=== PATIENT | female | born 1940 | race Caucasian/White ===

== ENCOUNTER 2020-12-09 17:42 | Inpatient (IN) ==
[2020-12-09] MEDS ORDERED: Lactated Ringers 1000 ml BAG 1,000 ML IV ONE (18:10)
[2020-12-09 18:35] LABS: ABS Lymphocytes 0.9 10^3/ul (1.0-4.8); ABS Monocytes 0.5 10^3/ul (0-0.8); Hematocrit 44 % (35-47); Hemoglobin 14.7 g/dL (12.0-16.0); Lymphocyte % 7.5 %; Mean Corpuscular HGB Conc 33 g/dL (31-36); Mean Corpuscular Hemoglobin 30 pg (27-31); Mean Corpuscular Volume 90 fL (80-97); Mean Platelet Volume 10.4 fL (7.4-10.4); Platelet Count 258 10^3/uL (150-450); Red Blood Count 4.87 10^6 /uL (3.70-4.87); Red Cell Distribution Width 14 % (10-15); Venous Bicarbonate HCO3 20.8 mmol/L (24-28); White Blood Count 12.4 10^3/uL (3.5-10.8)
[2020-12-09 18:52] LABS: ALT 14 U/L (7-52); Albumin/Globulin Ratio 0.9 (1-3); Alkaline Phosphatase 92 U/L (35-149); Blood Urea Nitrogen 20 mg/dL (6-24); C Reactive Protein 11.21 mg/L (<8.01); CO2 Carbon Dioxide 20 mmol/L (22-32); Calcium 9.5 mg/dL (8.6-10.3); Chloride 95 mmol/L (101-111); Creatine Kinase 246 U/L (10-223); EGFR African American 65.7 (>60); EGFR Non-African American 54.3 (>60); Globulin 4.5 g/dL (2-4); Glucose 401 mg/dL (70-100); Sodium 132 mmol/L (135-145); Total Protein 8.5 g/dL (6.4-8.9)
[2020-12-09 18:54] LABS: Troponin I 0.02 ng/mL (<0.03)
[2020-12-09 18:57] LABS: Anion Gap 17 mmol/L (2-11)
[2020-12-09 19:52] LABS: Urine Appearance Clear; Urine Bacteria 1+ (Absent); Urine Bilirubin Negative (Negative); Urine Blood 3+ (Negative); Urine Color Straw; Urine Glucose 3+(>=500 mg/dL) (Negative); Urine Ketones 2+ (Negative); Urine Nitrite Negative (Negative); Urine Protein 3+(>=500 mg/dL) (Negative); Urine Red Blood Cell Trace(0-2/hpf) (Absent); Urine Specific Gravity 1.021 (1.002-1.030); Urine Squamous Epithelial Cell Present (Absent); Urine Urobilinogen Negative (Negative); Urine White Blood Cell Trace(0-5/hpf) (Absent)
[2020-12-09 19:53] LABS: Magnesium 1.6 mg/dL (1.9-2.7); Potassium Redraw 4.1 mmol/L (3.5-5.0)
[2020-12-09] MEDS ORDERED: Magnesium Sulfate 2 gm BAG 2 GM/50 ML BAG IVPB ONE (19:56)
[2020-12-09 21:32] LABS: Rapid COVID-19 Molecular Undetected (Undetected)
[2020-12-09] MEDS ORDERED: Dextrose 50% Syringe 50 ml 25 GM/50 ML SYRINGE IV PUSH PRN (22:52)
[2020-12-09] MEDS ORDERED: Dextrose 50% Syringe 50 ml 25 GM/50 ML SYRINGE IV PUSH ONE (23:24)
[2020-12-09 23:32] LABS: Urine Creatinine Concentration 24.46 mg/dL
[2020-12-09 23:35] LABS: Myoglobin 186.7 ng/mL (14.3-65.8)
[2020-12-09] MEDS ORDERED: Lactated Ringers 1000 ml BAG 1,000 ML IV SCH (23:45)
[2020-12-10] MEDS: Enoxaparin 40 MG/0.4 ML SYR SUBCUT SCH (02:42)
[2020-12-10 05:14] LABS: Calcium 9.2 mg/dL (8.6-10.3)
[2020-12-10 05:20] LABS: EGFR African American 62.8 (>60); EGFR Non-African American 51.9 (>60)
[2020-12-10 05:37] LABS: Potassium 3.9 mmol/L (3.5-5.0)
[2020-12-10 09:48] LABS: ABS Lymphocytes 1.6 10^3/ul (1.0-4.8); ABS Monocytes 0.9 10^3/ul (0-0.8); ABS Neutrophils 7.4 10^3/ul (1.5-7.7); Eosinophil % 0.1 %; Hematocrit 38 % (35-47); Hemoglobin 12.9 g/dL (12.0-16.0); Mean Corpuscular HGB Conc 34 g/dL (31-36); Mean Corpuscular Hemoglobin 30 pg (27-31); Mean Corpuscular Volume 89 fL (80-97); Mean Platelet Volume 9.9 fL (7.4-10.4); Platelet Count 255 10^3/uL (150-450); Red Blood Count 4.29 10^6 /uL (3.70-4.87); Red Cell Distribution Width 14 % (10-15); White Blood Count 9.9 10^3/uL (3.5-10.8)
[2020-12-10 09:56] LABS: Anion Gap 16 mmol/L (2-11); Blood Urea Nitrogen 26 mg/dL (6-24); CO2 Carbon Dioxide 22 mmol/L (22-32); Calcium 9.6 mg/dL (8.6-10.3); Chloride 101 mmol/L (101-111); EGFR African American 62.8 (>60); EGFR Non-African American 51.9 (>60); Glucose 239 mg/dL (70-100); Potassium 3.2 mmol/L (3.5-5.0); Sodium 139 mmol/L (135-145)
[2020-12-10 10:36] LABS: Acetaminophen < 15 mcg/mL; Salicylate < 2.50 mg/dL (<30)
[2020-12-10] MEDS ORDERED: Perflutren Lipid Microsphere 3 ML VIAL ONE (15:15)
[2020-12-10] MEDS ORDERED: KCL 20 MEQ/100 ML IVPREMIX 20 MEQ/100 ML BAG IV ONE (16:26)
[2020-12-10] MEDS ORDERED: NS 0.9% 1000 ml BAG 1,000 ML IV SCH (16:30)
[2020-12-10] MEDS ORDERED: Potassium Chlor 20 meq TAB.ER PO ONE (20:27)
[2020-12-10] MEDS ORDERED: Insulin GLARGINE 100 un/ml 10 ml VIAL SUBCUT SCH (21:00)
[2020-12-10] MEDS: Insulin GLARGINE 100 un/ml 10 ml VIAL SUBCUT SCH (21:34)
[2020-12-11 07:12] LABS: Calcium 8.9 mg/dL (8.6-10.3); EGFR African American 88.2 (>60); EGFR Non-African American 72.9 (>60); Potassium 3.5 mmol/L (3.5-5.0)
[2020-12-11] MEDS: Enoxaparin 40 MG/0.4 ML SYR SUBCUT SCH (09:50)
[2020-12-11] MEDS: Aspirin EC 81 mg TAB.EC (enteric coated) PO SCH (09:52)
[2020-12-11 20:39] LABS: Glucose Confirmatory 561 mg/dL (70-100)
[2020-12-11] MEDS: Insulin GLARGINE 100 un/ml 10 ml VIAL SUBCUT SCH (21:24)
[2020-12-11 21:35] LABS: Anion Gap 12 mmol/L (2-11); Blood Urea Nitrogen 32 mg/dL (6-24); CO2 Carbon Dioxide 21 mmol/L (22-32); Calcium 8.7 mg/dL (8.6-10.3); Chloride 100 mmol/L (101-111); EGFR African American 58.1 (>60); EGFR Non-African American 48.1 (>60); Potassium 3.6 mmol/L (3.5-5.0); Sodium 133 mmol/L (135-145)
[2020-12-11 22:31] LABS: Glucose 559 mg/dL (70-100)
[2020-12-12] MEDS ORDERED: Dextrose 50% Syringe 50 ml 25 GM/50 ML SYRINGE IV PUSH PRN (00:05)
[2020-12-12 07:42] LABS: Calcium 9.1 mg/dL (8.6-10.3); EGFR African American 83.1 (>60); EGFR Non-African American 68.7 (>60); Potassium 3.2 mmol/L (3.5-5.0)
[2020-12-12] MEDS: Aspirin EC 81 mg TAB.EC (enteric coated) PO SCH (09:17)
[2020-12-12] MEDS: Enoxaparin 40 MG/0.4 ML SYR SUBCUT SCH (09:19)
[2020-12-12] MEDS ORDERED: Lidocaine 1% w EPI 1:100,000 MDV 20 ML VIAL ONE (12:30)
[2020-12-12] MEDS ORDERED: Potassium Chlor 20 meq TAB.ER PO ONE (13:01)
[2020-12-12 16:53] LABS: Glucose Confirmatory 437 mg/dL (70-100)
[2020-12-12 17:35] LABS: HDL Cholesterol 38.1 mg/dL
[2020-12-12] MEDS ORDERED: Insulin GLARGINE 100 un/ml 10 ml VIAL SUBCUT SCH (21:00)
[2020-12-13] MEDS: Enoxaparin 40 MG/0.4 ML SYR SUBCUT SCH (10:47)
[2020-12-13 11:28] VITALS: BP 141/75
== END 2020-12-13 11:15 | DRG 40 ==
LOC: ED 17:42 → SUATTDRO 23:39 → EDHOLD 23:39 → MEDTELE 12-10 13:16
PROVIDERS: ADMIT Internal Medicine; ATTEND Hospitalist

== ENCOUNTER 2022-01-18 18:02 | Inpatient (IN) ==
[2022-01-18] MEDS ORDERED: NS 0.9% 1000 ml BAG 500 ML IV ONE (18:09)
[2022-01-18 18:47] LABS: ABS Basophils 0.1 10^3/ul (0-0.2); ABS Lymphocytes 0.7 10^3/ul (1.0-4.8); ABS Monocytes 0.6 10^3/ul (0-0.8); ABS Neutrophils 8.1 10^3/ul (1.5-7.7); Hematocrit 39 % (35-47); Hemoglobin 12.9 g/dL (12.0-16.0); Lymphocyte % 7.8 %; Mean Corpuscular HGB Conc 33 g/dL (31-36); Mean Corpuscular Hemoglobin 29 pg (27-31); Mean Corpuscular Volume 89 fL (80-97); Mean Platelet Volume 9.9 fL (7.4-10.4); Platelet Count 228 10^3/uL (150-450); Red Blood Count 4.43 10^6 /uL (3.70-4.87); Red Cell Distribution Width 14 % (10-15); White Blood Count 9.5 10^3/uL (3.5-10.8)
[2022-01-18 18:57] LABS: Urine Appearance Cloudy; Urine Bilirubin Negative (Negative); Urine Blood 2+ (Negative); Urine Color Yellow; Urine Glucose 3+(>=500 mg/dL) (Negative); Urine Ketones 1+ (Negative); Urine Nitrite Negative (Negative); Urine Protein 3+(>=500 mg/dL) (Negative); Urine Specific Gravity 1.024 (1.002-1.030); Urine Urobilinogen Negative (Negative)
[2022-01-18 19:14] LABS: Urine Bacteria 1+ (Absent); Urine Red Blood Cell 3+(>10/hpf) (Absent); Urine Squamous Epithelial Cell Present (Absent); Urine White Blood Cell 3+(>20/hpf) (Absent)
[2022-01-18 19:22] LABS: Albumin 3.5 g/dL (3.2-5.2); Albumin/Globulin Ratio 0.8 (1-3); C Reactive Protein 75.6 mg/L (<8.01); Calcium 9.2 mg/dL (8.6-10.3); Globulin 4.5 g/dL (2-4); Potassium 4.2 mmol/L (3.5-5.0); Total Bilirubin 0.5 mg/dL (0.2-1.0); eGFR CKD-EPI 52.1 (>60)
[2022-01-18] MEDS ORDERED: cefTRIAXone 1 gm/50 mL D5W 1 GM/50 ML BAG IV ONE (19:26)
[2022-01-18] MEDS ORDERED: NS 0.9% 500 ml BAG 500 ML IV ONE (20:04)
[2022-01-18 20:32] LABS: Glucose Confirmatory 436 mg/dL (70-100)
[2022-01-18] MEDS ORDERED: Ondansetron 4 mg VIAL 2 MG/ML 2 ml VIAL IV PRN (21:25)
[2022-01-18 21:45] LABS: High Sensitivity Troponin 1 Hr 19 pg/mL (<15)
[2022-01-18] MEDS ORDERED: Lactated Ringers 1000 ml BAG 1,000 ML IV ONE (21:55)
[2022-01-18 21:56] LABS: Magnesium 1.7 mg/dL (1.9-2.7)
[2022-01-18] MEDS ORDERED: Enoxaparin 40 MG/0.4 ML SYR SUBCUT SCH (22:00)
[2022-01-18] MEDS ORDERED: Magnesium Sulfate IV 3 GM in NS 0.9% 100 ml BAG 100 ML IVPB ONE (23:54)
[2022-01-19] MEDS: Insulin GLARGINE 100 un/ml 10 ml VIAL SUBCUT SCH ×2 (01:22→22:11)
[2022-01-19] MEDS: Nystatin TOP POWDER 15 GM BTL TOPICAL SCH ×3 (01:44→22:15)
[2022-01-19] MEDS: Enoxaparin 30 MG/0.3 ML SYR SUBCUT ONE ×2 (01:55→03:35)
[2022-01-19 06:38] LABS: ABS Lymphocytes 1.1 10^3/ul (1.0-4.8); ABS Monocytes 0.6 10^3/ul (0-0.8); ABS Neutrophils 4.6 10^3/ul (1.5-7.7); Eosinophil % 0.1 %; Hematocrit 35 % (35-47); Hemoglobin 11.7 g/dL (12.0-16.0); Lymphocyte % 17.6 %; Mean Corpuscular HGB Conc 34 g/dL (31-36); Mean Corpuscular Hemoglobin 30 pg (27-31); Mean Corpuscular Volume 88 fL (80-97); Mean Platelet Volume 9.6 fL (7.4-10.4); Platelet Count 207 10^3/uL (150-450); Red Blood Count 3.98 10^6 /uL (3.70-4.87); Red Cell Distribution Width 14 % (10-15); White Blood Count 6.4 10^3/uL (3.5-10.8)
[2022-01-19 07:11] LABS: Calcium 8.5 mg/dL (8.6-10.3); Potassium 3.4 mmol/L (3.5-5.0); eGFR CKD-EPI 57.3 (>60)
[2022-01-19 07:26] LABS: TSH Ultra Thyroid Stim Horm 7.41 mcIU/mL (0.34-5.60)
[2022-01-19 08:13] LABS: Magnesium 2.3 mg/dL (1.9-2.7)
[2022-01-19] MEDS ORDERED: Dextrose 50% VIAL 50 ml IV PRN (10:47)
[2022-01-19] MEDS ORDERED: Enoxaparin 100 MG/ML SYR SUBCUT SCH (11:00)
[2022-01-19] MEDS ORDERED: Enoxaparin 80 MG/0.8 ML SYR SUBCUT SCH (11:00)
[2022-01-19] MEDS ORDERED: KCL 20 MEQ/100 ML IVPREMIX 20 MEQ/100 ML BAG IV ONE (17:53)
[2022-01-19] MEDS ORDERED: cefTRIAXone 1 gm/50 mL NS BAG 1 GM/50 ML BAG IV SCH (18:00)
[2022-01-19] MEDS: CMCS: SitaGLIPtin 100 mg TAB (NF) PO SCH (19:21)
[2022-01-20 06:35] LABS: ABS Eosinophils 0.1 10^3/ul (0-0.6); ABS Lymphocytes 1.2 10^3/ul (1.0-4.8); ABS Monocytes 0.5 10^3/ul (0-0.8); ABS Neutrophils 3.2 10^3/ul (1.5-7.7); Eosinophil % 2.2 %; Hematocrit 35 % (35-47); Hemoglobin 11.6 g/dL (12.0-16.0); Mean Corpuscular HGB Conc 33 g/dL (31-36); Mean Corpuscular Hemoglobin 29 pg (27-31); Mean Corpuscular Volume 88 fL (80-97); Mean Platelet Volume 9.7 fL (7.4-10.4); Platelet Count 209 10^3/uL (150-450); Red Cell Distribution Width 14 % (10-15)
[2022-01-20 06:56] LABS: Calcium 8.3 mg/dL (8.6-10.3); Potassium 3.6 mmol/L (3.5-5.0); eGFR CKD-EPI 56.6 (>60)
[2022-01-20] MEDS: CMCS: SitaGLIPtin 100 mg TAB (NF) PO SCH (09:21)
[2022-01-20] MEDS: Enoxaparin 30 MG/0.3 ML SYR SUBCUT SCH (09:22)
[2022-01-20] MEDS: Nystatin TOP POWDER 15 GM BTL TOPICAL SCH ×2 (09:23→22:01)
[2022-01-20] MEDS: Insulin GLARGINE 100 un/ml 10 ml VIAL SUBCUT SCH (22:01)
[2022-01-21] MEDS: Enoxaparin 30 MG/0.3 ML SYR SUBCUT SCH (08:18)
[2022-01-21] MEDS: Nystatin TOP POWDER 15 GM BTL TOPICAL SCH ×2 (08:18→21:09)
[2022-01-21] MEDS: CMCS: SitaGLIPtin 100 mg TAB (NF) PO SCH (08:18)
[2022-01-21] MEDS ORDERED: Insulin GLARGINE 100 un/ml 10 ml VIAL SUBCUT ONE (11:04)
[2022-01-21] MEDS ORDERED: Insulin GLARGINE 100 un/ml 10 ml VIAL SUBCUT SCH (21:00)
[2022-01-22] MEDS: CMCS: SitaGLIPtin 100 mg TAB (NF) PO SCH (09:59)
[2022-01-22] MEDS: Enoxaparin 30 MG/0.3 ML SYR SUBCUT SCH (10:02)
[2022-01-22] MEDS: Nystatin TOP POWDER 15 GM BTL TOPICAL SCH ×2 (10:10→22:41)
[2022-01-22] MEDS ORDERED: Enoxaparin 40 MG/0.4 ML SYR SUBCUT SCH (18:00)
[2022-01-22] MEDS: Insulin GLARGINE 100 un/ml 10 ml VIAL SUBCUT SCH (22:57)
[2022-01-23 07:00] LABS: ABS Eosinophils 0.2 10^3/ul (0-0.6); ABS Lymphocytes 1.7 10^3/ul (1.0-4.8); ABS Monocytes 0.4 10^3/ul (0-0.8); ABS Neutrophils 2.1 10^3/ul (1.5-7.7); Eosinophil % 4.4 %; Hematocrit 35 % (35-47); Hemoglobin 11.6 g/dL (12.0-16.0); Lymphocyte % 38.1 %; Mean Corpuscular HGB Conc 33 g/dL (31-36); Mean Corpuscular Hemoglobin 29 pg (27-31); Mean Corpuscular Volume 88 fL (80-97); Mean Platelet Volume 9.4 fL (7.4-10.4); Platelet Count 233 10^3/uL (150-450); Red Blood Count 4.01 10^6 /uL (3.70-4.87); Red Cell Distribution Width 14 % (10-15); White Blood Count 4.4 10^3/uL (3.5-10.8)
[2022-01-23] MEDS: Enoxaparin 40 MG/0.4 ML SYR SUBCUT SCH (09:00)
[2022-01-23] MEDS: CMCS: SitaGLIPtin 100 mg TAB (NF) PO SCH (09:00)
[2022-01-23] MEDS: Nystatin TOP POWDER 15 GM BTL TOPICAL SCH ×2 (09:01→21:40)
[2022-01-23 09:32] LABS: TSH Ultra Thyroid Stim Horm 9.37 mcIU/mL (0.34-5.60)
[2022-01-23 09:34] LABS: Free T4 0.98 ng/dL (0.61-1.12)
[2022-01-23 09:47] LABS: Albumin/Globulin Ratio 0.8 (1-3); Calcium 8.5 mg/dL (8.6-10.3); Globulin 3.8 g/dL (2-4); Potassium 4.5 mmol/L (3.5-5.0); Total Bilirubin 0.2 mg/dL (0.2-1.0); Total Protein 6.8 g/dL (6.4-8.9); eGFR CKD-EPI 58.7 (>60)
[2022-01-23] MEDS: Insulin GLARGINE 100 un/ml 10 ml VIAL SUBCUT SCH (21:39)
[2022-01-24 07:26] LABS: Calcium 8.6 mg/dL (8.6-10.3); Magnesium 1.5 mg/dL (1.9-2.7); Potassium 4.2 mmol/L (3.5-5.0); eGFR CKD-EPI 67.9 (>60)
[2022-01-24] MEDS ORDERED: Magnesium Sulf 4 GM/100 ML IV 4,000 MG/100 ML BAG IVPB ONE (07:56)
[2022-01-24] MEDS: Nystatin TOP POWDER 15 GM BTL TOPICAL SCH (09:03)
[2022-01-24] MEDS: CMCS: SitaGLIPtin 100 mg TAB (NF) PO SCH (09:03)
[2022-01-24] MEDS: Enoxaparin 40 MG/0.4 ML SYR SUBCUT SCH (09:03)
[2022-01-24 13:26] VITALS: BP 158/67
== END 2022-01-24 13:05 | disposition swing bed (61) | DRG 637 ==
LOC: ED 18:02 → EDHOLD 18:02 → SUATTDRO 21:25 → MEDTELE 01-19 00:53 → SUATTDRO 01-19 11:46 → UNDODISOB 01-19 11:46
PROVIDERS: ADMIT Student in an Organized Health Care Education/Training Program; ATTEND Internal Medicine

== ENCOUNTER 2022-01-24 13:38 | Inpatient (IN) ==
[2022-01-24] MEDS: Enoxaparin 40 MG/0.4 ML SYR SUBCUT SCH (17:21)
[2022-01-24] MEDS: Insulin GLARGINE 100 un/ml 10 ml VIAL SUBCUT SCH (23:00)
[2022-01-25] MEDS: Calcium/Vitamin D TAB 250/125 TAB PO SCH (09:10)
[2022-01-25] MEDS: CMC:SitaGLIPtin 100 mg TAB (NF) PO SCH (09:14)
[2022-01-25] MEDS: Enoxaparin 40 MG/0.4 ML SYR SUBCUT SCH (14:25)
[2022-01-25] MEDS: Insulin GLARGINE 100 un/ml 10 ml VIAL SUBCUT SCH (23:08)
[2022-01-26] MEDS: Calcium/Vitamin D TAB 250/125 TAB PO SCH (09:06)
[2022-01-26] MEDS: CMC:SitaGLIPtin 100 mg TAB (NF) PO SCH (09:17)
[2022-01-26] MEDS: Enoxaparin 40 MG/0.4 ML SYR SUBCUT SCH (14:08)
[2022-01-26] MEDS: Insulin GLARGINE 100 un/ml 10 ml VIAL SUBCUT SCH (22:23)
[2022-01-27] MEDS: Calcium/Vitamin D TAB 250/125 TAB PO SCH (10:01)
[2022-01-27] MEDS: CMC:SitaGLIPtin 100 mg TAB (NF) PO SCH (10:05)
[2022-01-27] MEDS: Enoxaparin 40 MG/0.4 ML SYR SUBCUT SCH (15:21)
[2022-01-27] MEDS: Insulin GLARGINE 100 un/ml 10 ml VIAL SUBCUT SCH (21:43)
[2022-01-28] MEDS: CMC:SitaGLIPtin 100 mg TAB (NF) PO SCH (07:46)
[2022-01-28] MEDS: Calcium/Vitamin D TAB 250/125 TAB PO SCH (07:47)
[2022-01-28 12:11] VITALS: BP 149/69
== END 2022-01-28 13:30 | DRG 947 ==
LOC: MEDTELE → SUATTDRO 13:40 → OBSVTOIN 13:40
PROVIDERS: ADMIT Student in an Organized Health Care Education/Training Program; ATTEND Hospitalist

== ENCOUNTER 2022-04-06 15:04 | Inpatient (IN) ==
[2022-04-06] MEDS ORDERED: Lactated Ringers 1000 ml BAG 1,000 ML IV ONE (16:38)
[2022-04-06 16:41] LABS: ABS Basophils 0.1 10^3/ul (0-0.2); ABS Lymphocytes 1.1 10^3/ul (1.0-4.8); ABS Monocytes 0.8 10^3/ul (0-0.8); ABS Neutrophils 8.9 10^3/ul (1.5-7.7); Eosinophil % 0.2 %; Hematocrit 30 % (35-47); Hemoglobin 9.2 g/dL (12.0-16.0); Lymphocyte % 10.2 %; Mean Corpuscular HGB Conc 31 g/dL (31-36); Mean Corpuscular Hemoglobin 25 pg (27-31); Mean Corpuscular Volume 82 fL (80-97); Mean Platelet Volume 8.2 fL (7.4-10.4); Nucleated Red Blood Cells % 0.1; Platelet Count 338 10^3/uL (150-450); Red Blood Count 3.62 10^6 /uL (3.70-4.87); Red Cell Distribution Width 17 % (10-15)
[2022-04-06 17:05] LABS: High Sens Troponin Baseline 40 pg/mL (<15)
[2022-04-06 17:18] LABS: ALT 19 U/L (7-52); AST 22 U/L (13-39); Albumin 2.7 g/dL (3.2-5.2); Albumin/Globulin Ratio 0.8 (1-3); Alkaline Phosphatase 82 U/L (35-149); Blood Urea Nitrogen 17 mg/dL (6-24); CO2 Carbon Dioxide 32 mmol/L (22-32); Calcium 7.8 mg/dL (8.6-10.3); Chloride 105 mmol/L (101-111); Creatine Kinase 574 U/L (10-223); Creatinine, Serum 1.23 mg/dL (0.51-0.95); Globulin 3.5 g/dL (2-4); Glucose 202 mg/dL (70-100); Total Protein 6.2 g/dL (6.4-8.9); eGFR CKD-EPI 43.6 (>60)
[2022-04-06] MEDS ORDERED: Iodixanol (CONTRAST) 320 MG/ML 100 ML SDV IV ONE (17:42)
[2022-04-06 17:44] LABS: Anion Gap 9 mmol/L (2-11); Potassium 2.5 mmol/L (3.5-5.0); Sodium 146 mmol/L (135-145)
[2022-04-06 18:03] LABS: High Sensitivity Troponin 1 Hr 40 pg/mL (<15)
[2022-04-06] MEDS ORDERED: Morphine 4 MG/ML VIAL (1 ml) IV ONE (18:30)
[2022-04-06] MEDS: KCL 10 MEQ/50 ML IVPREMIX 10 MEQ/50 ML BAG IV SCH ×3 (18:35→21:29)
[2022-04-06 23:15] LABS: Alcohol, S < 13 mg/dL (<13); Magnesium 1.4 mg/dL (1.9-2.7)
[2022-04-06] MEDS ORDERED: Potassium Chlor 20 meq TAB.ER PO ONE (23:23)
[2022-04-06] MEDS ORDERED: Magnesium Sulf 4 GM/100 ML IV 4,000 MG/100 ML BAG IVPB ONE (23:33)
[2022-04-06 23:48] LABS: ABS Basophils 0.1 10^3/ul (0-0.2); ABS Lymphocytes 0.8 10^3/ul (1.0-4.8); ABS Monocytes 0.4 10^3/ul (0-0.8); ABS Neutrophils 8.5 10^3/ul (1.5-7.7); Eosinophil % 0.2 %; Hematocrit 28 % (35-47); Hemoglobin 8.8 g/dL (12.0-16.0); Lymphocyte % 8.2 %; Mean Corpuscular HGB Conc 31 g/dL (31-36); Mean Corpuscular Hemoglobin 26 pg (27-31); Mean Corpuscular Volume 82 fL (80-97); Mean Platelet Volume 7.7 fL (7.4-10.4); Nucleated Red Blood Cells % 0.1; Platelet Count 325 10^3/uL (150-450); Red Blood Count 3.42 10^6 /uL (3.70-4.87); Red Cell Distribution Width 17 % (10-15); White Blood Count 9.8 10^3/uL (3.5-10.8)
[2022-04-06 23:50] LABS: Urine Appearance Cloudy; Urine Bilirubin Negative (Negative); Urine Blood 2+ (Negative); Urine Color Yellow; Urine Glucose 1+(50 mg/dL) (Negative); Urine Ketones Trace (Negative); Urine Nitrite Negative (Negative); Urine Protein 3+(>=500 mg/dL) (Negative); Urine Specific Gravity 1.014 (1.002-1.030); Urine Urobilinogen Negative (Negative)
[2022-04-06 23:52] LABS: Urine Bacteria Absent (Absent); Urine Red Blood Cell 2+(6-10/hpf) (Absent); Urine Squamous Epithelial Cell Present (Absent); Urine White Blood Cell Trace(0-5/hpf) (Absent)
[2022-04-07] MEDS ORDERED: Furosemide 20 mg/2 ml IV VIAL IV ONE (00:05)
[2022-04-07 00:43] LABS: Albumin 2.7 g/dL (3.2-5.2); Albumin/Globulin Ratio 0.8 (1-3); Calcium 7.6 mg/dL (8.6-10.3); Creatinine, Serum 1.34 mg/dL (0.51-0.95); Globulin 3.6 g/dL (2-4); Magnesium 1.3 mg/dL (1.9-2.7); Total Bilirubin 0.4 mg/dL (0.2-1.0); Total Protein 6.3 g/dL (6.4-8.9); eGFR CKD-EPI 39.3 (>60)
[2022-04-07 00:45] LABS: Potassium 2.7 mmol/L (3.5-5.0)
[2022-04-07] MEDS ORDERED: Potassium Chlor 10 meq TAB PO ONE (00:46)
[2022-04-07 00:51] LABS: C Reactive Protein 34.61 mg/L (<8.01)
[2022-04-07 01:11] LABS: Ferritin 54.8 ng/mL (11-307)
[2022-04-07] MEDS: Insulin GLARGINE 100 un/ml 10 ml VIAL SUBCUT SCH ×2 (01:45→21:49)
[2022-04-07] MEDS ORDERED: Dextrose 50% Syringe 50 ml 25 GM/50 ML SYRINGE IV PUSH PRN (02:04)
[2022-04-07] MEDS ORDERED: cefTRIAXone 1 gm/50 mL D5W 1 GM/50 ML BAG IV SCH (03:00)
[2022-04-07 03:24] LABS: Folate 13.42 ng/mL (5.90-24.80)
[2022-04-07 05:43] LABS: ABS Basophils 0.1 10^3/ul (0-0.2); ABS Lymphocytes 1.5 10^3/ul (1.0-4.8); ABS Monocytes 0.7 10^3/ul (0-0.8); ABS Neutrophils 6.4 10^3/ul (1.5-7.7); Eosinophil % 0.5 %; Hematocrit 27 % (35-47); Hemoglobin 8.7 g/dL (12.0-16.0); Mean Corpuscular HGB Conc 32 g/dL (31-36); Mean Corpuscular Hemoglobin 26 pg (27-31); Mean Corpuscular Volume 83 fL (80-97); Mean Platelet Volume 8.2 fL (7.4-10.4); Platelet Count 307 10^3/uL (150-450); Red Blood Count 3.31 10^6 /uL (3.70-4.87); Red Cell Distribution Width 17 % (10-15); White Blood Count 8.6 10^3/uL (3.5-10.8)
[2022-04-07 06:39] LABS: Calcium 7.8 mg/dL (8.6-10.3); Creatinine, Serum 1.43 mg/dL (0.51-0.95); Magnesium 2.2 mg/dL (1.9-2.7); Potassium 2.8 mmol/L (3.5-5.0); eGFR CKD-EPI 36.4 (>60)
[2022-04-07] MEDS ORDERED: Potassium Chlor 20 meq TAB.ER PO ONE (06:52)
[2022-04-07] MEDS ORDERED: NS 0.9% 1000 ml BAG 1,000 ML IV SCH ×2 (09:45→15:24)
[2022-04-07] MEDS: Pantoprazole VIAL 40 MG VIAL IV SCH ×2 (10:41→21:50)
[2022-04-07 14:29] LABS: Hematocrit 27 % (35-47); Hemoglobin 8.4 g/dL (12.0-16.0)
[2022-04-07 15:16] LABS: Calcium 7.7 mg/dL (8.6-10.3); Creatinine, Serum 1.38 mg/dL (0.51-0.95); Potassium 2.8 mmol/L (3.5-5.0)
[2022-04-07 15:55] LABS: High Sensitivity Troponin 1 Hr 55 pg/mL (<15)
[2022-04-07 16:10] LABS: Hematocrit 28 % (35-47); Hemoglobin 8.7 g/dL (12.0-16.0)
[2022-04-07] MEDS: KCL 20 MEQ/100 ML IVPREMIX 20 MEQ/100 ML BAG IV SCH ×2 (18:37→23:33)
[2022-04-07 20:26] LABS: Creatinine, Serum 1.4 mg/dL (0.51-0.95); eGFR CKD-EPI 37.3 (>60)
[2022-04-08 00:34] LABS: Hematocrit 27 % (35-47); Hemoglobin 8.6 g/dL (12.0-16.0)
[2022-04-08] MEDS ORDERED: KCL 20 MEQ/100 ML IVPREMIX 20 MEQ/100 ML BAG IV SCH (01:30)
[2022-04-08] MEDS: NS 0.9% w/ 20 Meq KCL 1000 ml 1,000 ML IV SCH (02:50)
[2022-04-08] MEDS: cefTRIAXone 1 gm/50 mL D5W 1 GM/50 ML BAG IV SCH (02:51)
[2022-04-08 07:34] LABS: Hematocrit 29 % (35-47); Hemoglobin 9.3 g/dL (12.0-16.0)
[2022-04-08 07:36] LABS: ABS Basophils 0.1 10^3/ul (0-0.2); ABS Eosinophils 0.2 10^3/ul (0-0.6); ABS Lymphocytes 1.4 10^3/ul (1.0-4.8); ABS Monocytes 0.6 10^3/ul (0-0.8); ABS Neutrophils 4.3 10^3/ul (1.5-7.7); Eosinophil % 2.4 %; Hematocrit 29 % (35-47); Hemoglobin 9.2 g/dL (12.0-16.0); Lymphocyte % 20.8 %; Mean Corpuscular HGB Conc 32 g/dL (31-36); Mean Corpuscular Hemoglobin 27 pg (27-31); Mean Corpuscular Volume 83 fL (80-97); Mean Platelet Volume 8.4 fL (7.4-10.4); Platelet Count 284 10^3/uL (150-450); Red Blood Count 3.47 10^6 /uL (3.70-4.87); Red Cell Distribution Width 17 % (10-15); White Blood Count 6.6 10^3/uL (3.5-10.8)
[2022-04-08 07:52] LABS: Calcium 8.1 mg/dL (8.6-10.3); Creatinine, Serum 1.44 mg/dL (0.51-0.95); Potassium 3.2 mmol/L (3.5-5.0); eGFR CKD-EPI 36.1 (>60)
[2022-04-08] MEDS ORDERED: Potassium Chlor 20 meq TAB.ER PO ONE ×2 (08:30→12:30)
[2022-04-08] MEDS: Pantoprazole VIAL 40 MG VIAL IV SCH ×2 (09:04→21:08)
[2022-04-08 15:44] LABS: ABS Eosinophils 0.1 10^3/ul (0-0.6); ABS Lymphocytes 0.9 10^3/ul (1.0-4.8); ABS Monocytes 0.4 10^3/ul (0-0.8); ABS Neutrophils 5.2 10^3/ul (1.5-7.7); Hematocrit 29 % (35-47); Hemoglobin 9.3 g/dL (12.0-16.0); Lymphocyte % 13.7 %; Mean Corpuscular HGB Conc 32 g/dL (31-36); Mean Corpuscular Hemoglobin 26 pg (27-31); Mean Corpuscular Volume 82 fL (80-97); Mean Platelet Volume 8.3 fL (7.4-10.4); Nucleated Red Blood Cells % 0.1; Platelet Count 280 10^3/uL (150-450); Red Blood Count 3.57 10^6 /uL (3.70-4.87); Red Cell Distribution Width 17 % (10-15); White Blood Count 6.7 10^3/uL (3.5-10.8)
[2022-04-08 18:35] LABS: Creatinine, Serum 1.45 mg/dL (0.51-0.95); Potassium 3.9 mmol/L (3.5-5.0); eGFR CKD-EPI 35.8 (>60)
[2022-04-08 20:53] LABS: Hematocrit 29 % (35-47); Hemoglobin 9.1 g/dL (12.0-16.0)
[2022-04-08] MEDS: PEG 3000 GI LAVAGE 1 GALLON PO SCH (21:06)
[2022-04-08] MEDS: Insulin GLARGINE 100 un/ml 10 ml VIAL SUBCUT SCH (21:07)
[2022-04-08] MEDS ORDERED: hydrALAZINE 20 mg/ml 1 ML Vial IV IV SLOW PU ONE (23:36)
[2022-04-09] MEDS: NS 0.9% w/ 20 Meq KCL 1000 ml 1,000 ML IV SCH (00:40)
[2022-04-09] MEDS ORDERED: hydrALAZINE 20 mg/ml 1 ML Vial IV IV SLOW PU ONE (01:25)
[2022-04-09] MEDS: cefTRIAXone 1 gm/50 mL D5W 1 GM/50 ML BAG IV SCH (03:10)
[2022-04-09 06:14] LABS: ABS Basophils 0.1 10^3/ul (0-0.2); ABS Eosinophils 0.1 10^3/ul (0-0.6); ABS Lymphocytes 1.3 10^3/ul (1.0-4.8); ABS Monocytes 0.7 10^3/ul (0-0.8); ABS Neutrophils 6.4 10^3/ul (1.5-7.7); Eosinophil % 1.6 %; Hematocrit 30 % (35-47); Hemoglobin 9.7 g/dL (12.0-16.0); Lymphocyte % 15.4 %; Mean Corpuscular HGB Conc 32 g/dL (31-36); Mean Corpuscular Hemoglobin 27 pg (27-31); Mean Corpuscular Volume 83 fL (80-97); Mean Platelet Volume 8.1 fL (7.4-10.4); Platelet Count 293 10^3/uL (150-450); Red Blood Count 3.66 10^6 /uL (3.70-4.87); Red Cell Distribution Width 17 % (10-15); White Blood Count 8.6 10^3/uL (3.5-10.8)
[2022-04-09 06:46] LABS: Calcium 8.1 mg/dL (8.6-10.3); Creatinine, Serum 1.21 mg/dL (0.51-0.95); Magnesium 1.7 mg/dL (1.9-2.7); Potassium 3.6 mmol/L (3.5-5.0); eGFR CKD-EPI 44.5 (>60)
[2022-04-09] MEDS ORDERED: Magnesium Sulfate IV 3 GM in NS 0.9% 100 ml BAG 100 ML IVPB ONE (07:06)
[2022-04-09] MEDS ORDERED: Potassium Chlor 20 meq TAB.ER PO ONE (07:07)
[2022-04-09] MEDS: PEG 3000 GI LAVAGE 1 GALLON PO SCH (07:39)
[2022-04-09] MEDS: Pantoprazole VIAL 40 MG VIAL IV SCH ×2 (08:26→21:10)
[2022-04-09] MEDS ORDERED: Furosemide 20 mg/2 ml IV VIAL IV SLOW PU ONE (09:26)
[2022-04-09] MEDS: Insulin GLARGINE 100 un/ml 10 ml VIAL SUBCUT SCH (21:47)
[2022-04-10] MEDS: cefTRIAXone 1 gm/50 mL D5W 1 GM/50 ML BAG IV SCH (03:30)
[2022-04-10 05:40] LABS: ABS Basophils 0.1 10^3/ul (0-0.2); ABS Eosinophils 0.1 10^3/ul (0-0.6); ABS Lymphocytes 1.2 10^3/ul (1.0-4.8); ABS Monocytes 0.5 10^3/ul (0-0.8); Eosinophil % 1.8 %; Hematocrit 30 % (35-47); Hemoglobin 9.4 g/dL (12.0-16.0); Mean Corpuscular HGB Conc 31 g/dL (31-36); Mean Corpuscular Hemoglobin 26 pg (27-31); Mean Corpuscular Volume 82 fL (80-97); Mean Platelet Volume 8.2 fL (7.4-10.4); Platelet Count 269 10^3/uL (150-450); Red Blood Count 3.64 10^6 /uL (3.70-4.87); Red Cell Distribution Width 17 % (10-15); White Blood Count 5.9 10^3/uL (3.5-10.8)
[2022-04-10] MEDS: Polyethyl Glycol/Propylene Gly OPHTH.SOLN BOTH EYES PRN (05:44)
[2022-04-10] MEDS ORDERED: PEG 3000 GI LAVAGE 1 GALLON PO ONE (06:00)
[2022-04-10 06:12] LABS: Calcium 8.2 mg/dL (8.6-10.3); Creatinine, Serum 1.15 mg/dL (0.51-0.95); Magnesium 1.9 mg/dL (1.9-2.7); Potassium 3.3 mmol/L (3.5-5.0); eGFR CKD-EPI 47.3 (>60)
[2022-04-10] MEDS ORDERED: Magnesium Sulfate 2 gm BAG 2 GM/50 ML BAG IVPB ONE (07:33)
[2022-04-10] MEDS ORDERED: Potassium Chlor 20 meq TAB.ER PO ONE (07:33)
[2022-04-10] MEDS: Pantoprazole VIAL 40 MG VIAL IV SCH ×2 (09:21→21:03)
[2022-04-10] MEDS: Nystatin TOP POWDER 15 GM BTL TOPICAL SCH ×2 (11:04→21:03)
[2022-04-10] MEDS ORDERED: Midazolam 5 mg/5 ml VIAL 1 mg/ml 5 ml VIAL (5 mg) ONE (13:19)
[2022-04-10] MEDS ORDERED: fentaNYL 100 mcg/2 ml 50 MCG/ML VIAL ONE (13:19)
[2022-04-10] MEDS ORDERED: Naloxone 0.4 mg VIAL 0.4 mg/ml 1 ml VIAL IV PUSH PRN (14:02)
[2022-04-10] MEDS ORDERED: Flumazenil 0.5 mg/5 ml 0.1 MG/ML 5 ml VIAL IV PRN (14:02)
[2022-04-10] MEDS ORDERED: fentaNYL 100 mcg/2 ml 50 MCG/ML VIAL IV SLOW PU ONE (14:02)
[2022-04-10] MEDS ORDERED: Midazolam 10 mg/10 ml VIAL 1 mg/ml 10 ml VIAL (10 mg) IV SLOW PU ONE (14:02)
[2022-04-10] MEDS ORDERED: Ondansetron 4 mg VIAL 2 MG/ML 2 ml VIAL IV ONE (14:02)
[2022-04-10] MEDS ORDERED: Lactated Ringers 1000 ml BAG 1,000 ML IV ONE (14:02)
[2022-04-10] MEDS ORDERED: Ferric Gluconate IV 125 MG in NS 0.9% 100 ml BAG 100 ML IVPB ONE (18:21)
[2022-04-10] MEDS ORDERED: Insulin GLARGINE 100 un/ml 10 ml VIAL SUBCUT SCH (21:00)
[2022-04-11] MEDS: cefTRIAXone 1 gm/50 mL D5W 1 GM/50 ML BAG IV SCH (04:34)
[2022-04-11 05:52] LABS: ABS Basophils 0.1 10^3/ul (0-0.2); ABS Eosinophils 0.1 10^3/ul (0-0.6); ABS Lymphocytes 1.1 10^3/ul (1.0-4.8); ABS Monocytes 0.6 10^3/ul (0-0.8); ABS Neutrophils 4.1 10^3/ul (1.5-7.7); Eosinophil % 1.7 %; Hematocrit 29 % (35-47); Hemoglobin 9.1 g/dL (12.0-16.0); Lymphocyte % 18.8 %; Mean Corpuscular HGB Conc 32 g/dL (31-36); Mean Corpuscular Hemoglobin 26 pg (27-31); Mean Corpuscular Volume 83 fL (80-97); Mean Platelet Volume 8.5 fL (7.4-10.4); Nucleated Red Blood Cells % 0.1; Platelet Count 277 10^3/uL (150-450); Red Blood Count 3.45 10^6 /uL (3.70-4.87); Red Cell Distribution Width 18 % (10-15); White Blood Count 5.9 10^3/uL (3.5-10.8)
[2022-04-11 06:11] LABS: Creatinine, Serum 1.31 mg/dL (0.51-0.95); Potassium 3.5 mmol/L (3.5-5.0); eGFR CKD-EPI 40.4 (>60)
[2022-04-11] MEDS: Pantoprazole VIAL 40 MG VIAL IV SCH ×2 (08:13→20:47)
[2022-04-11] MEDS: Psyllium PAK PO SCH (08:14)
[2022-04-11] MEDS ORDERED: Ferric Gluconate IV 125 MG in NS 0.9% 100 ml BAG 100 ML IVPB ONE (09:00)
[2022-04-11] MEDS: Nystatin TOP POWDER 15 GM BTL TOPICAL SCH ×2 (09:43→20:55)
[2022-04-11] MEDS: Polyethyl Glycol/Propylene Gly OPHTH.SOLN BOTH EYES PRN (20:55)
[2022-04-11] MEDS ORDERED: Insulin GLARGINE 100 un/ml 10 ml VIAL SUBCUT SCH (21:00)
[2022-04-12] MEDS: cefTRIAXone 1 gm/50 mL D5W 1 GM/50 ML BAG IV SCH (03:42)
[2022-04-12 06:17] LABS: ABS Basophils 0.1 10^3/ul (0-0.2); ABS Eosinophils 0.1 10^3/ul (0-0.6); ABS Lymphocytes 1.2 10^3/ul (1.0-4.8); ABS Monocytes 0.5 10^3/ul (0-0.8); ABS Neutrophils 4.3 10^3/ul (1.5-7.7); Eosinophil % 2.1 %; Hematocrit 29 % (35-47); Hemoglobin 9.4 g/dL (12.0-16.0); Lymphocyte % 19.7 %; Mean Corpuscular HGB Conc 33 g/dL (31-36); Mean Corpuscular Hemoglobin 27 pg (27-31); Mean Corpuscular Volume 82 fL (80-97); Mean Platelet Volume 8.2 fL (7.4-10.4); Platelet Count 274 10^3/uL (150-450); Red Blood Count 3.48 10^6 /uL (3.70-4.87); Red Cell Distribution Width 18 % (10-15); White Blood Count 6.3 10^3/uL (3.5-10.8)
[2022-04-12 06:45] LABS: Creatinine, Serum 1.3 mg/dL (0.51-0.95); Magnesium 1.7 mg/dL (1.9-2.7); Potassium 3.4 mmol/L (3.5-5.0); eGFR CKD-EPI 40.8 (>60)
[2022-04-12] MEDS: Pantoprazole VIAL 40 MG VIAL IV SCH (07:35)
[2022-04-12] MEDS: Nystatin TOP POWDER 15 GM BTL TOPICAL SCH ×2 (07:35→21:32)
[2022-04-12] MEDS: Psyllium PAK PO SCH (07:36)
[2022-04-12] MEDS ORDERED: Magnesium Sulfate IV 3 GM in NS 0.9% 100 ml BAG 100 ML IVPB ONE (07:45)
[2022-04-12] MEDS ORDERED: Dextrose 50% Syringe 50 ml 25 GM/50 ML SYRINGE IV PUSH PRN (07:50)
[2022-04-12] MEDS ORDERED: Ferric Gluconate IV 125 MG in NS 0.9% 100 ml BAG 100 ML IVPB ONE ×2 (09:00→10:22)
[2022-04-12] MEDS ORDERED: Potassium Chlor 20 meq TAB.ER PO ONE (10:00)
[2022-04-12] MEDS: Erythromycin OPTH OINT APPLIC OINT BOTH EYES SCH ×3 (12:05→21:37)
[2022-04-12] MEDS: Polyethyl Glycol/Propylene Gly OPHTH.SOLN BOTH EYES PRN ×2 (20:54→21:36)
[2022-04-12] MEDS: Insulin GLARGINE 100 un/ml 10 ml VIAL SUBCUT SCH (20:55)
[2022-04-12] MEDS ORDERED: Insulin GLARGINE 100 un/ml 10 ml VIAL SUBCUT SCH (21:00)
[2022-04-13 06:26] LABS: ABS Basophils 0.1 10^3/ul (0-0.2); ABS Eosinophils 0.1 10^3/ul (0-0.6); ABS Lymphocytes 1.5 10^3/ul (1.0-4.8); ABS Monocytes 0.6 10^3/ul (0-0.8); ABS Neutrophils 3.3 10^3/ul (1.5-7.7); Eosinophil % 2.5 %; Hematocrit 29 % (35-47); Hemoglobin 8.9 g/dL (12.0-16.0); Lymphocyte % 26.3 %; Mean Corpuscular HGB Conc 31 g/dL (31-36); Mean Corpuscular Hemoglobin 26 pg (27-31); Mean Corpuscular Volume 83 fL (80-97); Mean Platelet Volume 8.6 fL (7.4-10.4); Nucleated Red Blood Cells % 0.1; Platelet Count 264 10^3/uL (150-450); Red Blood Count 3.48 10^6 /uL (3.70-4.87); Red Cell Distribution Width 17 % (10-15); White Blood Count 5.6 10^3/uL (3.5-10.8)
[2022-04-13 06:39] LABS: Calcium 8.1 mg/dL (8.6-10.3); Creatinine, Serum 1.33 mg/dL (0.51-0.95); Magnesium 1.9 mg/dL (1.9-2.7); Potassium 3.5 mmol/L (3.5-5.0); eGFR CKD-EPI 39.7 (>60)
[2022-04-13] MEDS: Nystatin TOP POWDER 15 GM BTL TOPICAL SCH ×2 (08:01→21:44)
[2022-04-13] MEDS: Erythromycin OPTH OINT APPLIC OINT BOTH EYES SCH ×3 (08:01→21:43)
[2022-04-13] MEDS: Psyllium PAK PO SCH (08:01)
[2022-04-13 10:52] LABS: Creatinine, Serum 1.37 mg/dL (0.51-0.95); Magnesium 1.8 mg/dL (1.9-2.7); Potassium 3.6 mmol/L (3.5-5.0); eGFR CKD-EPI 38.3 (>60)
[2022-04-13] MEDS ORDERED: Magnesium Sulfate IV 3 GM in NS 0.9% 100 ml BAG 100 ML IVPB ONE (17:52)
[2022-04-13] MEDS: Insulin GLARGINE 100 un/ml 10 ml VIAL SUBCUT SCH (21:41)
[2022-04-14 06:35] LABS: ABS Basophils 0.1 10^3/ul (0-0.2); ABS Eosinophils 0.2 10^3/ul (0-0.6); ABS Lymphocytes 1.3 10^3/ul (1.0-4.8); ABS Monocytes 0.6 10^3/ul (0-0.8); Eosinophil % 3.6 %; Hematocrit 28 % (35-47); Hemoglobin 9.1 g/dL (12.0-16.0); Lymphocyte % 25.4 %; Mean Corpuscular HGB Conc 32 g/dL (31-36); Mean Corpuscular Hemoglobin 27 pg (27-31); Mean Corpuscular Volume 83 fL (80-97); Mean Platelet Volume 8.1 fL (7.4-10.4); Platelet Count 250 10^3/uL (150-450); Red Blood Count 3.39 10^6 /uL (3.70-4.87); Red Cell Distribution Width 17 % (10-15); White Blood Count 5.2 10^3/uL (3.5-10.8)
[2022-04-14 07:14] LABS: Calcium 8.2 mg/dL (8.6-10.3); Creatinine, Serum 1.38 mg/dL (0.51-0.95); Potassium 3.5 mmol/L (3.5-5.0)
[2022-04-14 08:33] LABS: Magnesium 2.2 mg/dL (1.9-2.7)
[2022-04-14] MEDS: Psyllium PAK PO SCH (09:34)
[2022-04-14] MEDS: Nystatin TOP POWDER 15 GM BTL TOPICAL SCH ×2 (09:34→21:10)
[2022-04-14] MEDS: Heparin 5000 UNITS/ML 1 mL VIAL SUBCUT SCH ×2 (15:01→21:09)
[2022-04-14] MEDS: Insulin GLARGINE 100 un/ml 10 ml VIAL SUBCUT SCH (21:10)
[2022-04-14 23:27] LABS: Rapid COVID-19 Molecular Undetected (Undetected)
[2022-04-15] MEDS: Heparin 5000 UNITS/ML 1 mL VIAL SUBCUT SCH (06:20)
[2022-04-15] MEDS: Nystatin TOP POWDER 15 GM BTL TOPICAL SCH (09:10)
[2022-04-15] MEDS: Psyllium PAK PO SCH (09:10)
[2022-04-15 11:22] VITALS: BP 145/65
== END 2022-04-15 11:35 | DRG 377 ==
LOC: ED 15:04 → EDHOLD 15:04 → SUATTDRO 23:21 → MEDTELE 04-07 15:44
PROVIDERS: ADMIT Hospitalist; ATTEND Family Medicine

== ENCOUNTER 2022-04-23 20:21 | Inpatient (IN) ==
[2022-04-23] MEDS ORDERED: Furosemide 40 mg/4 ml IV VIAL IV SLOW PU ONE (20:54)
[2022-04-23] MEDS ORDERED: Succinylcholine 200 mg VIAL 20 mg/ml 10 ml VIAL (200 mg) ONE (21:02)
[2022-04-23] MEDS ORDERED: Propofol 10 mg/ml 100 ML BTL 1,000 MG/100 ML BTL ONE (21:02)
[2022-04-23] MEDS ORDERED: Rocuronium 50 mg VIAL 10 mg/ml 5 ml VIAL (50 mg) ONE (21:02)
[2022-04-23] MEDS ORDERED: fentaNYL 100 mcg/2 ml 50 MCG/ML VIAL IV SLOW PU ONE (21:24)
[2022-04-23] MEDS ORDERED: fentaNYL 100 mcg/2 ml 50 MCG/ML VIAL ONE (21:26)
[2022-04-23 21:35] LABS: ABS Basophils 0.1 10^3/ul (0-0.2); ABS Lymphocytes 0.9 10^3/ul (1.0-4.8); ABS Monocytes 0.2 10^3/ul (0-0.8); ABS Neutrophils 5.4 10^3/ul (1.5-7.7); Eosinophil % 0.1 %; Hematocrit 29 % (35-47); Hemoglobin 8.7 g/dL (12.0-16.0); Lymphocyte % 13.5 %; Mean Corpuscular HGB Conc 30 g/dL (31-36); Mean Corpuscular Hemoglobin 26 pg (27-31); Mean Corpuscular Volume 87 fL (80-97); Nucleated Red Blood Cells % 0.1; Platelet Count 250 10^3/uL (150-450); Red Blood Count 3.35 10^6 /uL (3.70-4.87); Red Cell Distribution Width 18 % (10-15); White Blood Count 6.6 10^3/uL (3.5-10.8)
[2022-04-23] MEDS ORDERED: Ondansetron 4 mg VIAL 2 MG/ML 2 ml VIAL IV PRN (21:37)
[2022-04-23] MEDS ORDERED: Dextrose 50% Syringe 50 ml 25 GM/50 ML SYRINGE IV PUSH PRN (21:37)
[2022-04-23 21:40] LABS: Venous Bicarbonate HCO3 25.9 mmol/L (24-28)
[2022-04-23 21:50] LABS: High Sens Troponin Baseline 15 pg/mL (<15)
[2022-04-23 21:57] LABS: ALT 13 U/L (7-52); Albumin 2.7 g/dL (3.2-5.2); Albumin/Globulin Ratio 0.7 (1-3); Alkaline Phosphatase 113 U/L (35-149); Blood Urea Nitrogen 23 mg/dL (6-24); CO2 Carbon Dioxide 25 mmol/L (22-32); Calcium 7.5 mg/dL (8.6-10.3); Chloride 110 mmol/L (101-111); Creatinine, Serum 1.11 mg/dL (0.51-0.95); Globulin 3.9 g/dL (2-4); Glucose 198 mg/dL (70-100); Sodium 139 mmol/L (135-145); Total Protein 6.6 g/dL (6.4-8.9); eGFR CKD-EPI 49.3 (>60)
[2022-04-23] MEDS: Norepinephrine 16MCG/ML BAGD5W 4,000 MCG/250 ML BAG IV SCH (22:10)
[2022-04-23] MEDS ORDERED: Norepinephrine 16MCG/ML BAGD5W 4,000 MCG/250 ML BAG IV ONE (22:11)
[2022-04-23 22:16] LABS: PCO2 Arterial 54 mmHg (35-45); PO2 Arterial 90 mmHg (80-100)
[2022-04-23 22:26] LABS: Anion Gap 4 mmol/L (2-11)
[2022-04-23] MEDS: Propofol 10 mg/ml 100 ML BTL 1,000 MG/100 ML BTL IV SCH (23:45)
[2022-04-24] MEDS: Propofol 10 mg/ml 100 ML BTL 1,000 MG/100 ML BTL IV SCH ×5 (00:43→22:44)
[2022-04-24] MEDS: Chlorhexidine MOUTHWASH 0.12% 15 ML UDC TOPICAL SCH ×6 (01:22→20:47)
[2022-04-24] MEDS: Enoxaparin 40 MG/0.4 ML SYR SUBCUT SCH ×2 (01:22→20:51)
[2022-04-24] MEDS: Pantoprazole VIAL 40 MG VIAL IV SCH ×2 (01:22→20:51)
[2022-04-24 05:14] LABS: ABS Lymphocytes 0.9 10^3/ul (1.0-4.8); ABS Monocytes 0.4 10^3/ul (0-0.8); ABS Neutrophils 2.6 10^3/ul (1.5-7.7); Eosinophil % 0.1 %; Hematocrit 23 % (35-47); Lymphocyte % 22.9 %; Mean Corpuscular HGB Conc 31 g/dL (31-36); Mean Corpuscular Hemoglobin 26 pg (27-31); Mean Corpuscular Volume 84 fL (80-97); Mean Platelet Volume 8.7 fL (7.4-10.4); Nucleated Red Blood Cells % 0.1; Platelet Count 204 10^3/uL (150-450); Red Blood Count 2.69 10^6 /uL (3.70-4.87); Red Cell Distribution Width 18 % (10-15); White Blood Count 3.9 10^3/uL (3.5-10.8)
[2022-04-24 05:56] LABS: Calcium 8.1 mg/dL (8.6-10.3); Creatinine, Serum 1.46 mg/dL (0.51-0.95); Magnesium 1.3 mg/dL (1.9-2.7); Phosphorus 4.1 mg/dL (2.5-5.0); Potassium 3.6 mmol/L (3.5-5.0); eGFR CKD-EPI 35.5 (>60)
[2022-04-24] MEDS ORDERED: Magnesium Sulf 4 GM/100 ML IV 4,000 MG/100 ML BAG IVPB ONE (06:01)
[2022-04-24] MEDS: Albuterol/Ipratropium NEB.SOL (2.5/0.5 MG) 3 ML NEB.SOLN INH PRN ×3 (06:58→18:59)
[2022-04-24] MEDS ORDERED: Furosemide 40 mg/4 ml IV VIAL IV SLOW PU SCH (08:00)
[2022-04-24] MEDS ORDERED: Levothyroxine 100 MCG/5 ML VIAL IV SCH (10:30)
[2022-04-24] MEDS ORDERED: Midazolam 10 mg/10 ml VIAL 1 mg/ml 10 ml VIAL (10 mg) IV SLOW PU ONE (10:40)
[2022-04-24] MEDS ORDERED: fentaNYL 100 mcg/2 ml 50 MCG/ML VIAL IV SLOW PU ONE (10:41)
[2022-04-24] MEDS ORDERED: Midazolam 5 mg/5 ml VIAL 1 mg/ml 5 ml VIAL (5 mg) ONE (10:44)
[2022-04-24] MEDS ORDERED: fentaNYL 100 mcg/2 ml 50 MCG/ML VIAL ONE (10:45)
[2022-04-24] MEDS ORDERED: Acetylcysteine INH SOL (RT) 200 MG/ML 4 ML VIAL INH ONE (10:49)
[2022-04-24] MEDS: Norepinephrine 16MCG/ML BAGD5W 4,000 MCG/250 ML BAG IV SCH (11:28)
[2022-04-24] MEDS ORDERED: Piperacillin/Tazobac ADVAN 3.375 GM in NS 0.9% 100 ml BAG 100 ML IV ONE (11:38)
[2022-04-24] MEDS ORDERED: Zosyn per Pharmacy NOTE FOLLOW UP SCH (12:00)
[2022-04-24 12:16] LABS: C Reactive Protein 25.21 mg/L (<8.01)
[2022-04-24] MEDS: Levothyroxine 100 MCG/5 ML VIAL IV SCH (12:31)
[2022-04-24] MEDS ORDERED: NS 0.9% IVPB ONE (13:00)
[2022-04-24] MEDS ORDERED: Vancomycin per Pharmacy 1 EA NOTE FOLLOW UP SCH (13:00)
[2022-04-24] MEDS ORDERED: VANCOMYCIN IVPB ONE (13:00)
[2022-04-24 13:40] LABS: Urine Appearance Cloudy; Urine Bilirubin Negative (Negative); Urine Blood 3+ (Negative); Urine Color Straw; Urine Glucose Negative (Negative); Urine Ketones Negative (Negative); Urine Nitrite Negative (Negative); Urine Protein 2+(100 mg/dL) (Negative); Urine Specific Gravity 1.008 (1.002-1.030); Urine Urobilinogen Negative (Negative)
[2022-04-24 13:43] LABS: ABS Basophils 0.1 10^3/ul (0-0.2); ABS Lymphocytes 0.7 10^3/ul (1.0-4.8); ABS Monocytes 0.4 10^3/ul (0-0.8); Eosinophil % 0.3 %; Hematocrit 25 % (35-47); Hemoglobin 7.6 g/dL (12.0-16.0); Lymphocyte % 17.8 %; Mean Corpuscular HGB Conc 31 g/dL (31-36); Mean Corpuscular Hemoglobin 26 pg (27-31); Mean Corpuscular Volume 84 fL (80-97); Mean Platelet Volume 9.1 fL (7.4-10.4); Nucleated Red Blood Cells % 0.1; Platelet Count 236 10^3/uL (150-450); Red Blood Count 2.93 10^6 /uL (3.70-4.87); Red Cell Distribution Width 18 % (10-15); White Blood Count 4.2 10^3/uL (3.5-10.8)
[2022-04-24 13:44] LABS: Urine Bacteria 1+ (Absent); Urine Red Blood Cell 3+(>10/hpf) (Absent); Urine White Blood Cell Trace(0-5/hpf) (Absent)
[2022-04-24] MEDS: Acetylcysteine INHALATION SOL 200 MG/ML NEB.SOLN 10 ML INH SCH ×2 (14:20→18:58)
[2022-04-24 14:31] LABS: Body Fluid Source Broncheoalveolar lav
[2022-04-24 14:42] LABS: Creatinine, Serum 1.45 mg/dL (0.51-0.95); Potassium 3.7 mmol/L (3.5-5.0); eGFR CKD-EPI 35.8 (>60)
[2022-04-24] MEDS: ZOSYN 3.375 GM Q8H per EXTENDED INFUSION IV SCH (17:23)
[2022-04-24] MEDS: Furosemide 40 mg/4 ml IV VIAL IV SLOW PU SCH (17:24)
[2022-04-24 18:23] LABS: Body Fluid Appearance Bloody; Body Fluid Color Pink
[2022-04-24 19:01] LABS: Body Fluid Band 1 %; Body Fluid Total Cells Counted 300
[2022-04-24 20:50] LABS: Hematocrit 24 % (35-47); Hemoglobin 7.5 g/dL (12.0-16.0)
[2022-04-24] MEDS: Insulin GLARGINE 100 un/ml 10 ml VIAL SUBCUT SCH (20:51)
[2022-04-25] MEDS: Chlorhexidine MOUTHWASH 0.12% 15 ML UDC TOPICAL SCH ×7 (00:34→23:58)
[2022-04-25 00:51] LABS: Hematocrit 23 % (35-47); Hemoglobin 7.2 g/dL (12.0-16.0)
[2022-04-25] MEDS: Albuterol/Ipratropium NEB.SOL (2.5/0.5 MG) 3 ML NEB.SOLN INH PRN ×4 (01:08→18:38)
[2022-04-25] MEDS: Acetylcysteine INHALATION SOL 200 MG/ML NEB.SOLN 10 ML INH SCH ×4 (01:08→18:38)
[2022-04-25] MEDS: ZOSYN 3.375 GM Q8H per EXTENDED INFUSION IV SCH ×4 (01:35→23:58)
[2022-04-25] MEDS ORDERED: Norepinephrine 16MCG/ML BAGD5W 4,000 MCG/250 ML BAG IV SCH (02:00)
[2022-04-25] MEDS: Propofol 10 mg/ml 100 ML BTL 1,000 MG/100 ML BTL IV SCH ×5 (02:04→23:09)
[2022-04-25 05:21] LABS: ABS Lymphocytes 0.8 10^3/ul (1.0-4.8); ABS Monocytes 0.4 10^3/ul (0-0.8); ABS Neutrophils 4.3 10^3/ul (1.5-7.7); Eosinophil % 0.1 %; Hematocrit 23 % (35-47); Hemoglobin 7.3 g/dL (12.0-16.0); Lymphocyte % 13.7 %; Mean Corpuscular HGB Conc 32 g/dL (31-36); Mean Corpuscular Hemoglobin 26 pg (27-31); Mean Corpuscular Volume 83 fL (80-97); Nucleated Red Blood Cells % 0.1; Platelet Count 228 10^3/uL (150-450); Red Blood Count 2.76 10^6 /uL (3.70-4.87); Red Cell Distribution Width 18 % (10-15); White Blood Count 5.5 10^3/uL (3.5-10.8)
[2022-04-25 05:55] LABS: Calcium 7.9 mg/dL (8.6-10.3); Creatinine, Serum 1.89 mg/dL (0.51-0.95); Magnesium 1.9 mg/dL (1.9-2.7); Phosphorus 4.2 mg/dL (2.5-5.0); Vancomycin Random 14.1 mcg/mL
[2022-04-25] MEDS ORDERED: Vancomycin Random Level NOTE FOLLOW UP ONE (06:00)
[2022-04-25] MEDS ORDERED: Magnesium Sulfate IV 1GM/100ML 1 GM/100 ML BAG IV ONE (06:31)
[2022-04-25] MEDS: KCL 20 MEQ/100 ML IVPREMIX 20 MEQ/100 ML BAG IV SCH ×2 (08:09→10:12)
[2022-04-25] MEDS: Levothyroxine 100 MCG/5 ML VIAL IV SCH (09:05)
[2022-04-25] MEDS: Furosemide 40 mg/4 ml IV VIAL IV SLOW PU SCH ×2 (09:05→17:53)
[2022-04-25] MEDS ORDERED: Potassium Chlor 20 meq TAB.ER PO ONE (10:31)
[2022-04-25] MEDS ORDERED: Potassium Chloride LIQUID 20 MEQ/15 ML LIQUID PO ONE (10:48)
[2022-04-25] MEDS: fentaNYL 100 mcg/2 ml 50 MCG/ML VIAL IV SLOW PU PRN ×2 (17:06→20:26)
[2022-04-25 17:40] LABS: Calcium 7.8 mg/dL (8.6-10.3); Creatinine, Serum 2.05 mg/dL (0.51-0.95); Potassium 3.6 mmol/L (3.5-5.0); eGFR CKD-EPI 23.6 (>60)
[2022-04-25] MEDS ORDERED: fentaNYL 100 mcg/2 ml 50 MCG/ML VIAL IV SLOW PU PRN (20:14)
[2022-04-25] MEDS: Pantoprazole VIAL 40 MG VIAL IV SCH (21:12)
[2022-04-25] MEDS: Insulin GLARGINE 100 un/ml 10 ml VIAL SUBCUT SCH (21:13)
[2022-04-25] MEDS: Enoxaparin 40 MG/0.4 ML SYR SUBCUT SCH (21:13)
[2022-04-26] MEDS: Acetylcysteine INHALATION SOL 200 MG/ML NEB.SOLN 10 ML INH SCH ×2 (01:10→08:17)
[2022-04-26] MEDS: Albuterol/Ipratropium NEB.SOL (2.5/0.5 MG) 3 ML NEB.SOLN INH PRN ×2 (01:11→08:16)
[2022-04-26] MEDS: Chlorhexidine MOUTHWASH 0.12% 15 ML UDC TOPICAL SCH ×6 (03:37→23:36)
[2022-04-26] MEDS: Propofol 10 mg/ml 100 ML BTL 1,000 MG/100 ML BTL IV SCH ×5 (03:37→22:34)
[2022-04-26 04:24] LABS: ABS Lymphocytes 0.6 10^3/ul (1.0-4.8); ABS Monocytes 0.4 10^3/ul (0-0.8); ABS Neutrophils 2.9 10^3/ul (1.5-7.7); Hematocrit 22 % (35-47); Hemoglobin 6.8 g/dL (12.0-16.0); Lymphocyte % 15.3 %; Mean Corpuscular HGB Conc 31 g/dL (31-36); Mean Corpuscular Hemoglobin 26 pg (27-31); Mean Corpuscular Volume 83 fL (80-97); Mean Platelet Volume 8.9 fL (7.4-10.4); Platelet Count 217 10^3/uL (150-450); Red Blood Count 2.64 10^6 /uL (3.70-4.87); Red Cell Distribution Width 18 % (10-15); White Blood Count 3.9 10^3/uL (3.5-10.8)
[2022-04-26 04:45] LABS: Calcium 7.6 mg/dL (8.6-10.3); Creatinine, Serum 2.19 mg/dL (0.51-0.95); Phosphorus 4.3 mg/dL (2.5-5.0); Potassium 3.4 mmol/L (3.5-5.0); eGFR CKD-EPI 21.8 (>60)
[2022-04-26] MEDS ORDERED: Potassium Chloride LIQUID 20 MEQ/15 ML LIQUID PO ONE (07:16)
[2022-04-26] MEDS: Levothyroxine 100 MCG/5 ML VIAL IV SCH (07:56)
[2022-04-26] MEDS: ZOSYN 3.375 GM Q8H per EXTENDED INFUSION IV SCH ×3 (08:09→23:36)
[2022-04-26] MEDS: Furosemide 40 mg/4 ml IV VIAL IV SLOW PU SCH (08:36)
[2022-04-26] MEDS: Pantoprazole VIAL 40 MG VIAL IV SCH ×2 (09:12→21:42)
[2022-04-26] MEDS: Calcium/Vitamin D TAB 250/125 TAB PO SCH (10:03)
[2022-04-26 13:58] LABS: Hematocrit 24 % (35-47); Hemoglobin 7.8 g/dL (12.0-16.0); Mean Corpuscular HGB Conc 32 g/dL (31-36); Mean Corpuscular Hemoglobin 27 pg (27-31); Mean Corpuscular Volume 83 fL (80-97); Mean Platelet Volume 8.6 fL (7.4-10.4); Platelet Count 216 10^3/uL (150-450); Red Blood Count 2.92 10^6 /uL (3.70-4.87); Red Cell Distribution Width 18 % (10-15)
[2022-04-26 17:30] LABS: Hematocrit 26 % (35-47); Hemoglobin 8.2 g/dL (12.0-16.0)
[2022-04-26] MEDS: Enoxaparin 40 MG/0.4 ML SYR SUBCUT SCH (21:41)
[2022-04-26] MEDS: Insulin GLARGINE 100 un/ml 10 ml VIAL SUBCUT SCH (21:41)
[2022-04-27] MEDS: Propofol 10 mg/ml 100 ML BTL 1,000 MG/100 ML BTL IV SCH ×5 (03:24→23:58)
[2022-04-27] MEDS: Chlorhexidine MOUTHWASH 0.12% 15 ML UDC TOPICAL SCH ×5 (05:13→20:00)
[2022-04-27 05:22] LABS: ABS Eosinophils 0.3 10^3/ul (0-0.6); ABS Lymphocytes 0.9 10^3/ul (1.0-4.8); ABS Monocytes 0.4 10^3/ul (0-0.8); ABS Neutrophils 2.4 10^3/ul (1.5-7.7); Eosinophil % 6.8 %; Hematocrit 26 % (35-47); Lymphocyte % 21.3 %; Mean Corpuscular HGB Conc 31 g/dL (31-36); Mean Corpuscular Hemoglobin 27 pg (27-31); Mean Corpuscular Volume 85 fL (80-97); Mean Platelet Volume 8.9 fL (7.4-10.4); Platelet Count 219 10^3/uL (150-450); Red Blood Count 3.03 10^6 /uL (3.70-4.87); Red Cell Distribution Width 18 % (10-15)
[2022-04-27 06:02] LABS: Calcium 7.6 mg/dL (8.6-10.3); Creatinine, Serum 2.27 mg/dL (0.51-0.95); eGFR CKD-EPI 20.9 (>60)
[2022-04-27] MEDS: Calcium/Vitamin D TAB 250/125 TAB PO SCH (08:29)
[2022-04-27] MEDS: Levothyroxine 100 MCG/5 ML VIAL IV SCH (08:29)
[2022-04-27] MEDS: Pantoprazole VIAL 40 MG VIAL IV SCH ×2 (08:29→20:00)
[2022-04-27] MEDS: ZOSYN 3.375 GM Q8H per EXTENDED INFUSION IV SCH ×2 (08:35→15:42)
[2022-04-27] MEDS ORDERED: Furosemide 40 mg/4 ml IV VIAL IV SLOW PU ONE (10:43)
[2022-04-27] MEDS: Enoxaparin 40 MG/0.4 ML SYR SUBCUT SCH (20:00)
[2022-04-27] MEDS: Insulin GLARGINE 100 un/ml 10 ml VIAL SUBCUT SCH (20:00)
[2022-04-28] MEDS: Chlorhexidine MOUTHWASH 0.12% 15 ML UDC TOPICAL SCH ×6 (00:55→20:21)
[2022-04-28] MEDS: ZOSYN 3.375 GM Q8H per EXTENDED INFUSION IV SCH ×3 (00:55→20:21)
[2022-04-28] MEDS: Propofol 10 mg/ml 100 ML BTL 1,000 MG/100 ML BTL IV SCH ×3 (04:29→19:15)
[2022-04-28 04:44] LABS: ABS Eosinophils 0.3 10^3/ul (0-0.6); ABS Lymphocytes 0.9 10^3/ul (1.0-4.8); ABS Monocytes 0.5 10^3/ul (0-0.8); ABS Neutrophils 2.7 10^3/ul (1.5-7.7); Eosinophil % 7.3 %; Hematocrit 25 % (35-47); Hemoglobin 7.9 g/dL (12.0-16.0); Lymphocyte % 20.3 %; Mean Corpuscular HGB Conc 31 g/dL (31-36); Mean Corpuscular Hemoglobin 26 pg (27-31); Mean Corpuscular Volume 84 fL (80-97); Mean Platelet Volume 8.3 fL (7.4-10.4); Platelet Count 239 10^3/uL (150-450); Red Blood Count 2.98 10^6 /uL (3.70-4.87); Red Cell Distribution Width 18 % (10-15); White Blood Count 4.4 10^3/uL (3.5-10.8)
[2022-04-28 05:54] LABS: Calcium 7.6 mg/dL (8.6-10.3); Creatinine, Serum 2.46 mg/dL (0.51-0.95); Magnesium 1.9 mg/dL (1.9-2.7); Phosphorus 4.5 mg/dL (2.5-5.0); Potassium 3.7 mmol/L (3.5-5.0)
[2022-04-28] MEDS: Calcium/Vitamin D TAB 250/125 TAB PO SCH (10:00)
[2022-04-28] MEDS: Levothyroxine 100 MCG/5 ML VIAL IV SCH (10:00)
[2022-04-28] MEDS: Pantoprazole VIAL 40 MG VIAL IV SCH ×2 (10:13→20:21)
[2022-04-28] MEDS ORDERED: Furosemide 40 mg/4 ml IV VIAL IV SLOW PU ONE (11:39)
[2022-04-28] MEDS ORDERED: Furosemide 100 mg/10 ml IV VIAL IV ONE (11:42)
[2022-04-28 11:46] LABS: ABS Eosinophils 0.4 10^3/ul (0-0.6); ABS Lymphocytes 1.1 10^3/ul (1.0-4.8); ABS Monocytes 0.6 10^3/ul (0-0.8); ABS Neutrophils 2.7 10^3/ul (1.5-7.7); Eosinophil % 7.5 %; Hematocrit 26 % (35-47); Hemoglobin 8.2 g/dL (12.0-16.0); Lymphocyte % 22.8 %; Mean Corpuscular HGB Conc 31 g/dL (31-36); Mean Corpuscular Hemoglobin 26 pg (27-31); Mean Corpuscular Volume 84 fL (80-97); Mean Platelet Volume 8.8 fL (7.4-10.4); Nucleated Red Blood Cells % 0.1; Platelet Count 260 10^3/uL (150-450); Red Blood Count 3.11 10^6 /uL (3.70-4.87); Red Cell Distribution Width 18 % (10-15); White Blood Count 4.8 10^3/uL (3.5-10.8)
[2022-04-28 11:55] LABS: Activated Partial Thrombo Time 35.5 seconds (26.0-38.0); INR 1.06 (0.88-1.18)
[2022-04-28 12:24] LABS: Creatinine, Serum 2.48 mg/dL (0.51-0.95); eGFR CKD-EPI 18.8 (>60)
[2022-04-28] MEDS: Heparin 5000 UNITS/ML 1 mL VIAL SUBCUT SCH ×2 (14:15→20:21)
[2022-04-28] MEDS: Insulin GLARGINE 100 un/ml 10 ml VIAL SUBCUT SCH (22:54)
[2022-04-29] MEDS: Chlorhexidine MOUTHWASH 0.12% 15 ML UDC TOPICAL SCH ×5 (00:25→14:39)
[2022-04-29] MEDS: Propofol 10 mg/ml 100 ML BTL 1,000 MG/100 ML BTL IV SCH ×2 (02:07→07:04)
[2022-04-29] MEDS: Nystatin TOP POWDER 15 GM BTL TOPICAL SCH ×4 (05:01→20:55)
[2022-04-29] MEDS: Dextran 70/Hypromellose Tears Eye Drops 15 ml BTL (for Artificials Tears) BOTH EYES PRN (05:01)
[2022-04-29] MEDS: Heparin 5000 UNITS/ML 1 mL VIAL SUBCUT SCH ×3 (05:02→22:17)
[2022-04-29 05:06] LABS: ABS Eosinophils 0.3 10^3/ul (0-0.6); ABS Lymphocytes 1.1 10^3/ul (1.0-4.8); ABS Monocytes 0.5 10^3/ul (0-0.8); ABS Neutrophils 2.1 10^3/ul (1.5-7.7); Eosinophil % 8.2 %; Hematocrit 25 % (35-47); Mean Corpuscular HGB Conc 32 g/dL (31-36); Mean Corpuscular Hemoglobin 27 pg (27-31); Mean Corpuscular Volume 84 fL (80-97); Mean Platelet Volume 7.9 fL (7.4-10.4); Nucleated Red Blood Cells % 0.1; Platelet Count 258 10^3/uL (150-450); Red Blood Count 3.01 10^6 /uL (3.70-4.87); Red Cell Distribution Width 19 % (10-15); White Blood Count 4.1 10^3/uL (3.5-10.8)
[2022-04-29 05:43] LABS: Calcium 7.7 mg/dL (8.6-10.3); Creatinine, Serum 2.63 mg/dL (0.51-0.95); Magnesium 1.8 mg/dL (1.9-2.7); Phosphorus 4.8 mg/dL (2.5-5.0); Potassium 3.4 mmol/L (3.5-5.0); eGFR CKD-EPI 17.5 (>60)
[2022-04-29] MEDS: Calcium/Vitamin D TAB 250/125 TAB PO SCH (07:39)
[2022-04-29] MEDS: Pantoprazole VIAL 40 MG VIAL IV SCH ×2 (07:39→22:17)
[2022-04-29] MEDS: ZOSYN 3.375 GM Q8H per EXTENDED INFUSION IV SCH ×2 (07:40→21:12)
[2022-04-29] MEDS: Levothyroxine 100 MCG/5 ML VIAL IV SCH (07:40)
[2022-04-29] MEDS ORDERED: Potassium Chlor 20 meq TAB.ER PO ONE (08:13)
[2022-04-29] MEDS ORDERED: Magnesium Sulfate 2 gm BAG 2 GM/50 ML BAG IVPB ONE (08:14)
[2022-04-29] MEDS ORDERED: Potassium Chloride LIQUID 20 MEQ/15 ML LIQUID PO ONE (08:15)
[2022-04-29] MEDS ORDERED: Furosemide 40 mg/4 ml IV VIAL IV ONE (08:23)
[2022-04-29] MEDS ORDERED: hydrALAZINE 20 mg/ml 1 ML Vial IV IV SLOW PU ONE (11:56)
[2022-04-29] MEDS ORDERED: Metoprolol Tartrate 5 mg VIAL 5 ml VIAL (1 mg/ml) IV PRN (16:47)
[2022-04-29] MEDS: hydrALAZINE 20 mg/ml 1 ML Vial IV IV SLOW PU PRN (18:06)
[2022-04-30 05:11] LABS: ABS Basophils 0.1 10^3/ul (0-0.2); ABS Eosinophils 0.2 10^3/ul (0-0.6); ABS Monocytes 0.5 10^3/ul (0-0.8); Eosinophil % 3.9 %; Hematocrit 28 % (35-47); Hemoglobin 8.9 g/dL (12.0-16.0); Mean Corpuscular HGB Conc 32 g/dL (31-36); Mean Corpuscular Hemoglobin 27 pg (27-31); Mean Corpuscular Volume 85 fL (80-97); Nucleated Red Blood Cells % 0.1; Platelet Count 288 10^3/uL (150-450); Red Blood Count 3.32 10^6 /uL (3.70-4.87); Red Cell Distribution Width 18 % (10-15); White Blood Count 4.8 10^3/uL (3.5-10.8)
[2022-04-30 05:43] LABS: Calcium 8.2 mg/dL (8.6-10.3); Creatinine, Serum 2.59 mg/dL (0.51-0.95); Phosphorus 5.5 mg/dL (2.5-5.0); Potassium 3.5 mmol/L (3.5-5.0); eGFR CKD-EPI 17.8 (>60)
[2022-04-30] MEDS: Heparin 5000 UNITS/ML 1 mL VIAL SUBCUT SCH ×3 (06:20→21:30)
[2022-04-30] MEDS: Insulin GLARGINE 100 un/ml 10 ml VIAL SUBCUT SCH (07:18)
[2022-04-30] MEDS ORDERED: Potassium Chloride LIQUID 20 MEQ/15 ML LIQUID PO ONE (07:24)
[2022-04-30] MEDS: ZOSYN 3.375 GM Q8H per EXTENDED INFUSION IV SCH ×2 (08:24→20:35)
[2022-04-30] MEDS: Calcium/Vitamin D TAB 250/125 TAB PO SCH (09:07)
[2022-04-30] MEDS: Nystatin TOP POWDER 15 GM BTL TOPICAL SCH ×3 (10:06→21:30)
[2022-04-30] MEDS: Pantoprazole VIAL 40 MG VIAL IV SCH ×2 (10:06→21:59)
[2022-04-30] MEDS: Levothyroxine 100 MCG/5 ML VIAL IV SCH (10:07)
[2022-04-30] MEDS: Albuterol/Ipratropium NEB.SOL (2.5/0.5 MG) 3 ML NEB.SOLN INH SCH ×4 (10:18→19:02)
[2022-04-30] MEDS: Dextran 70/Hypromellose Tears Eye Drops 15 ml BTL (for Artificials Tears) BOTH EYES PRN (10:24)
[2022-04-30] MEDS: hydrALAZINE 20 mg/ml 1 ML Vial IV IV SLOW PU PRN (22:10)
[2022-04-30] MEDS: Lidocaine PATCH 5% PATCH TRANSDERM SCH (23:14)
[2022-05-01] MEDS: Albuterol/Ipratropium NEB.SOL (2.5/0.5 MG) 3 ML NEB.SOLN INH SCH ×3 (01:07→13:01)
[2022-05-01] MEDS: Heparin 5000 UNITS/ML 1 mL VIAL SUBCUT SCH ×3 (05:09→21:29)
[2022-05-01] MEDS: hydrALAZINE 20 mg/ml 1 ML Vial IV IV SLOW PU PRN ×2 (05:10→13:54)
[2022-05-01 05:24] LABS: ABS Basophils 0.1 10^3/ul (0-0.2); ABS Eosinophils 0.3 10^3/ul (0-0.6); ABS Lymphocytes 1.5 10^3/ul (1.0-4.8); ABS Monocytes 0.7 10^3/ul (0-0.8); ABS Neutrophils 3.6 10^3/ul (1.5-7.7); Eosinophil % 4.8 %; Hematocrit 28 % (35-47); Hemoglobin 8.8 g/dL (12.0-16.0); Lymphocyte % 23.7 %; Mean Corpuscular HGB Conc 31 g/dL (31-36); Mean Corpuscular Hemoglobin 26 pg (27-31); Mean Corpuscular Volume 84 fL (80-97); Mean Platelet Volume 8.2 fL (7.4-10.4); Nucleated Red Blood Cells % 0.1; Platelet Count 301 10^3/uL (150-450); Red Blood Count 3.34 10^6 /uL (3.70-4.87); Red Cell Distribution Width 18 % (10-15); White Blood Count 6.2 10^3/uL (3.5-10.8)
[2022-05-01 05:59] LABS: Calcium 8.4 mg/dL (8.6-10.3); Creatinine, Serum 2.51 mg/dL (0.51-0.95); Magnesium 1.9 mg/dL (1.9-2.7); Phosphorus 4.9 mg/dL (2.5-5.0); Potassium 3.5 mmol/L (3.5-5.0); eGFR CKD-EPI 18.5 (>60)
[2022-05-01] MEDS ORDERED: Potassium Chloride LIQUID 20 MEQ/15 ML LIQUID PO ONE (07:25)
[2022-05-01] MEDS ORDERED: Magnesium Sulfate IV 1GM/100ML 1 GM/100 ML BAG IV ONE (07:26)
[2022-05-01] MEDS: Calcium/Vitamin D TAB 250/125 TAB PO SCH ×2 (07:57→11:07)
[2022-05-01] MEDS: ZOSYN 3.375 GM Q8H per EXTENDED INFUSION IV SCH ×2 (07:57→20:07)
[2022-05-01] MEDS: Lidocaine PATCH 5% PATCH TRANSDERM SCH (08:12)
[2022-05-01] MEDS: Nystatin TOP POWDER 15 GM BTL TOPICAL SCH ×3 (11:12→20:07)
[2022-05-01] MEDS ORDERED: Albuterol/Ipratropium NEB.SOL (2.5/0.5 MG) 3 ML NEB.SOLN INH PRN (13:36)
[2022-05-01 17:35] LABS: Rapid COVID-19 Molecular Undetected (Undetected)
[2022-05-02] MEDS: hydrALAZINE 20 mg/ml 1 ML Vial IV IV SLOW PU PRN (04:35)
[2022-05-02] MEDS: Heparin 5000 UNITS/ML 1 mL VIAL SUBCUT SCH ×3 (05:55→21:25)
[2022-05-02 10:29] LABS: ABS Basophils 0.1 10^3/ul (0-0.2); ABS Eosinophils 0.2 10^3/ul (0-0.6); ABS Lymphocytes 1.4 10^3/ul (1.0-4.8); ABS Monocytes 0.4 10^3/ul (0-0.8); ABS Neutrophils 4.5 10^3/ul (1.5-7.7); Eosinophil % 3.6 %; Hematocrit 28 % (35-47); Hemoglobin 8.8 g/dL (12.0-16.0); Lymphocyte % 20.5 %; Mean Corpuscular HGB Conc 32 g/dL (31-36); Mean Corpuscular Hemoglobin 26 pg (27-31); Mean Corpuscular Volume 83 fL (80-97); Mean Platelet Volume 7.7 fL (7.4-10.4); Nucleated Red Blood Cells % 0.1; Platelet Count 308 10^3/uL (150-450); Red Blood Count 3.37 10^6 /uL (3.70-4.87); Red Cell Distribution Width 19 % (10-15); White Blood Count 6.6 10^3/uL (3.5-10.8)
[2022-05-02] MEDS: ZOSYN 3.375 GM Q8H per EXTENDED INFUSION IV SCH (10:50)
[2022-05-02] MEDS: Calcium/Vitamin D TAB 250/125 TAB PO SCH (10:56)
[2022-05-02] MEDS: Lidocaine PATCH 5% PATCH TRANSDERM SCH (10:57)
[2022-05-02] MEDS: Nystatin TOP POWDER 15 GM BTL TOPICAL SCH ×3 (10:59→21:24)
[2022-05-02 11:43] LABS: Calcium 8.6 mg/dL (8.6-10.3); Creatinine, Serum 2.36 mg/dL (0.51-0.95); Magnesium 1.9 mg/dL (1.9-2.7); Potassium 3.3 mmol/L (3.5-5.0); eGFR CKD-EPI 19.9 (>60)
[2022-05-02] MEDS ORDERED: Potassium Chloride LIQUID 20 MEQ/15 ML LIQUID PO ONE (16:08)
[2022-05-03] MEDS: Heparin 5000 UNITS/ML 1 mL VIAL SUBCUT SCH ×3 (05:30→20:15)
[2022-05-03 06:14] LABS: ABS Basophils 0.1 10^3/ul (0-0.2); ABS Eosinophils 0.3 10^3/ul (0-0.6); ABS Lymphocytes 1.4 10^3/ul (1.0-4.8); ABS Monocytes 0.6 10^3/ul (0-0.8); ABS Neutrophils 4.8 10^3/ul (1.5-7.7); Eosinophil % 4.4 %; Hematocrit 30 % (35-47); Hemoglobin 9.5 g/dL (12.0-16.0); Lymphocyte % 19.8 %; Mean Corpuscular HGB Conc 32 g/dL (31-36); Mean Corpuscular Hemoglobin 26 pg (27-31); Mean Corpuscular Volume 83 fL (80-97); Mean Platelet Volume 8.4 fL (7.4-10.4); Nucleated Red Blood Cells % 0.1; Platelet Count 319 10^3/uL (150-450); Red Cell Distribution Width 19 % (10-15); White Blood Count 7.2 10^3/uL (3.5-10.8)
[2022-05-03 06:28] LABS: Calcium 8.9 mg/dL (8.6-10.3); Creatinine, Serum 2.28 mg/dL (0.51-0.95); Magnesium 1.9 mg/dL (1.9-2.7); Potassium 3.5 mmol/L (3.5-5.0); eGFR CKD-EPI 20.8 (>60)
[2022-05-03] MEDS: Calcium/Vitamin D TAB 250/125 TAB PO SCH (08:11)
[2022-05-03] MEDS: Lidocaine PATCH 5% PATCH TRANSDERM SCH (08:11)
[2022-05-03] MEDS: Nystatin TOP POWDER 15 GM BTL TOPICAL SCH ×3 (08:15→20:15)
[2022-05-04 06:23] LABS: ABS Basophils 0.1 10^3/ul (0-0.2); ABS Eosinophils 0.3 10^3/ul (0-0.6); ABS Lymphocytes 1.2 10^3/ul (1.0-4.8); ABS Monocytes 0.5 10^3/ul (0-0.8); ABS Neutrophils 4.3 10^3/ul (1.5-7.7); Eosinophil % 5.2 %; Hematocrit 28 % (35-47); Hemoglobin 8.7 g/dL (12.0-16.0); Lymphocyte % 18.3 %; Mean Corpuscular HGB Conc 32 g/dL (31-36); Mean Corpuscular Hemoglobin 27 pg (27-31); Mean Corpuscular Volume 85 fL (80-97); Mean Platelet Volume 8.5 fL (7.4-10.4); Nucleated Red Blood Cells % 0.1; Platelet Count 269 10^3/uL (150-450); Red Blood Count 3.26 10^6 /uL (3.70-4.87); Red Cell Distribution Width 18 % (10-15); White Blood Count 6.4 10^3/uL (3.5-10.8)
[2022-05-04] MEDS: Heparin 5000 UNITS/ML 1 mL VIAL SUBCUT SCH ×3 (06:24→21:25)
[2022-05-04 06:44] LABS: Calcium 8.4 mg/dL (8.6-10.3); Creatinine, Serum 2.28 mg/dL (0.51-0.95); Magnesium 1.8 mg/dL (1.9-2.7); Potassium 3.4 mmol/L (3.5-5.0); eGFR CKD-EPI 20.8 (>60)
[2022-05-04] MEDS ORDERED: Potassium Chloride LIQUID 20 MEQ/15 ML LIQUID PO ONE (08:04)
[2022-05-04] MEDS: Calcium/Vitamin D TAB 250/125 TAB PO SCH (08:11)
[2022-05-04] MEDS: Lidocaine PATCH 5% PATCH TRANSDERM SCH (08:12)
[2022-05-04] MEDS: Nystatin TOP POWDER 15 GM BTL TOPICAL SCH ×3 (08:17→21:25)
[2022-05-04] MEDS: Dextran 70/Hypromellose Tears Eye Drops 15 ml BTL (for Artificials Tears) BOTH EYES PRN (08:17)
[2022-05-05] MEDS: Heparin 5000 UNITS/ML 1 mL VIAL SUBCUT SCH (06:08)
[2022-05-05] MEDS: Calcium/Vitamin D TAB 250/125 TAB PO SCH (09:10)
[2022-05-05] MEDS: Lidocaine PATCH 5% PATCH TRANSDERM SCH (09:11)
[2022-05-05] MEDS: Nystatin TOP POWDER 15 GM BTL TOPICAL SCH (09:11)
[2022-05-05 10:59] LABS: Rapid COVID-19 Molecular Undetected (Undetected)
[2022-05-05 11:52] VITALS: BP 148/61
== END 2022-05-05 12:26 | DRG 207 ==
LOC: ED 20:21 → SUATTDRO 21:38 → EDHOLD 21:38 → ICU 22:53 → MEDTELE 05-01 22:22
PROVIDERS: ADMIT Internal Medicine Critical Care Medicine; ATTEND Internal Medicine